=== PATIENT | female | born 1955 | race Two or more races ===

== ENCOUNTER → 2016-12-10 | Outpatient (CLI) | payer OTHER | LOC: CIMAGING 07:24 | PROVIDERS: ATTEND Internal Medicine | DX: R93.2 Abnormal findings on diagnostic imaging of liver and biliary tract (principal); K82.4 Cholesterolosis of gallbladder | CPT/HCPCS: 76705-PO ==

== ENCOUNTER → 2016-12-21 | Outpatient (CLI) | payer OTHER ==
[~2016-12-21] MED LIST: GADOBUTROL 10 ML VIAL IVP ONE
== END ==
LOC: FIMAGING 10:10
PROVIDERS: ATTEND Internal Medicine
DX: D18.03 Hemangioma of intra-abdominal structures (principal)
CPT/HCPCS: A9585

== ENCOUNTER 2017-08-17 11:24 | Emergency (ER) | payer OTHER ==
[2017-08-17] MEDS ORDERED: traMADol 50 MG TAB PO ONE (13:37)
--- NOTE | 2017-08-17 13:38 | EDPHY ---
H & P Stated Complaint: Injury to L ankle Source: Patient Exam Limitations: No limitations - Personal History Current Tetanus Diphtheria and Acellular Pertussis (TDAP): Yes - Medical/Surgical History Other PMH: thyroid - Social History Smoking Status: Never smoked Time Seen by Provider: 08/17/17 13:38 HPI/ROS: HPI: This is a 62-year-old female who presents Chief Complaint: Left ankle injury Location: Left ankle Quality: Injury Duration: 2 3 hr prior to arrival Signs and Symptoms: No bleeding, no radiation, no numbness, no weakness, no tingling, no incontinence, + decreased range of motion, + swelling, + pain Timing: Acute Severity: Moderate to severe Context: Patient was cleaning off her porch steps when she accidentally slipped and injured her left ankle. She reports that it twisted and unusual way and she heard a loud pop and then felt immediate pain. She had difficulty with weight-bearing due to the pain. Pain is constant, moderate intensity, nonradiating and worsened with weight-bearing. She reports that she is extremely sensitive to medications and only can take Advil. Not on any blood thinners. Denies paresthesias/skin color changes. She reports that she lost her balance and denies dizziness/chest pain/shortness of breath. She did not hit her head, lose consciousness and denies neck pain. Modifying Factors: None Comment: ROS: see HPI Constitutional: No fever, no chills, no weight loss Eyes: No blurred vision Respiratory: No shortness of breath, no cough Cardiovascular: No chest pain Gastrointestinal: No nausea, no vomiting no diarrhea Genitourinary: No dysuria Extremities: No myalgias Neurologic: No weakness, no numbness Skin: No rashes Hematologic: No bruising, no bleeding MEDICAL/SURGICAL/SOCIAL HISTORY: Medical history: Hypothyroidism Surgical history: Denies Social history: Retired. CONSTITUTIONAL: Pleasant elderly white female, awake and alert, no obvious distress HEENT: Atraumatic and normocephalic, PERRL, EOMI. Tympanic membranes clear. Oropharynx clear, no exudate and moist pink mucosa. Airway patent. No lymphadenopathy. No meningismus. Cardiovascular: Normal S1/S2, regular rate, regular rhythm, without murmur rub or gallop. PULMONARY/CHEST: Symmetrical and nontender. Clear to auscultation bilaterally. Good air movement. No accessory muscle usage. ABDOMEN: Soft, nondistended, nontender, no rebound, no guarding, no peritoneal signs, no masses or organomegaly. No CVAT. EXTREMITIES: 2/2 DP and PT pulses, pedal strength 5/5, left Ankle: Mild ecchymosis and swelling at the medial and lateral malleolus. Plantar flexion to 40, dorsiflexion to 20. Foot inversion to 35 degree. No tenderness/swelling Anterior talofibular ligament. No tenderness/swelling Calcaneofibular ligament , + tenderness/swelling posterior talofibular ligament, + tenderness/swelling posterior inferior tibiofibular ligament. no deformities, no clubbing, no cyanosis or edema. Touch sensation intact. NEUROLOGICAL: no focal neuro deficits. GCS 15. SKIN: Warm and dry, no erythema. no rash. Good capillary refill. (Irasema Doe) Constitutional: Initial Vital Signs Temperature (C) 36.6 C 08/17/17 11:30 Heart Rate 78 08/17/17 11:30 Respiratory Rate 16 08/17/17 11:30 Blood Pressure 120/78 08/17/17 11:30 O2 Sat (%) 97 08/17/17 11:30 O2 Delivery Mode Room Air Allergies/Adverse Reactions: Sulfa (Sulfonamide Antibiotics) Allergy (Mild, Verified 08/17/17 11:35) Rash Home Medications: Medication Instructions Recorded Levothyroxine [Synthroid 100 mcg 100 mcg PO DAILY06 08/17/17 (*)] traMADol [Ultram 50 mg (*)] 50 mg PO Q4 PRN #12 tab 08/17/17 Medical Decision Making Procedures: Procedure: Splint placement. A left [place] splint was applied by the Emergency Room reliability technicians. After application of the splint I returned and re-examined the patient. The splint was adequately immobilizing the joint and distal to the splint the patient's circulation and sensation was intact. (Irasema Doe) ED Course/Re-evaluation: X-ray, oral medication ordered X-ray shows bimalleolar fracture; moderately displaced medial malleolus and mild displaced lateral malleolus Placed in posterior leg and combination sandwich splint. Crutches provided. Given p.o. Ultram with adequate relief of pain. Patient politely declines any pain medication stronger than this. No signs of neurovascular compromise/tenting of skin/compartment syndrome/ extremities and joints examined above and below area of concern and are neurovascularly intact. Ankle x-ray provided on disc Fall was accidental in nature. This patient was seen under the supervision of my secondary supervising physician. I evaluated care for this patient independently. Discussed this patient with Dr. Godfrey who did not see the patient. (Irasema Doe) Differential Diagnosis: Differential diagnosis includes but is not limited to tibia fracture, fibula fracture, midfoot fracture, ligament sprain, nerve injury. (Irasema Doe) Other Provider: The patient was evaluated and managed by the Physician Bone Glue Maker. My co- signature indicates that I have reviewed this chart and I agree with the findings and plan of care as documented. I am the secondary supervising physician. (Marialuisa Godfrey) - Data Points Medications Given: Discontinued Medications Tramadol HCl (Ultram) 50 mg PO EDNOW ONE Stop: 08/17/17 13:38 Last Admin: 08/17/17 13:47 Dose: 50 mg Departure - Departure Disposition: Home, Routine, Self-Care Clinical Impression: Bimalleolar fracture of left ankle Condition: Good Instructions: Ankle Fracture (ED) Additional Instructions: Keep the splint dry and in place until seen by Orthopedics. Use crutches to aid ambulation; start with nonweightbearing status. Take Tylenol 650 mg every 4 hours and/or Ibuprofen 600 mg every 8 hours with food as needed for pain. Apply ice for 30 minutes at a time; 2-3 times per day for the next 1-2 days. Follow up with Orthopedics in 5-7 days at which time they will evaluate and recommend with you if conservative management versus surgery is indicated. Referrals: Sonny Aden MD [Medical Doctor] - As per Instructions Prescriptions: traMADol [Ultram 50 mg (*)] 50 mg PO Q4 PRN #12 tab PRN Reason: Pain, Moderate
[2017-08-17 15:04] VITALS: BP 151/78; PULSE 69; RESP 12; TEMP 98.2; O2SAT 96
== END 2017-08-17 15:01 | disposition home or self-care (01) ==
DX: S82.842A Displaced bimalleolar fracture of left lower leg, initial encounter for closed fracture (principal); W18.49XA Other slipping, tripping and stumbling without falling, initial encounter; Y99.8 Other external cause status; Y93.89 Activity, other specified